=== PATIENT | female | born 1975 | race Caucasian/White ===

== ENCOUNTER 2017-09-04 02:51 | Emergency (ER) | payer OTHER ==
[2017-09-04] MEDS: DIPHENHYDRAMINE 50 MG INJ IV (03:50)
[2017-09-04] MEDS: METOCLOPRAMIDE 10 MG INJ IV (03:50)
[2017-09-04] MEDS: SOD CHLORIDE 0.9% 1,000 ML IV (03:51)
== END 2017-09-04 04:45 | disposition home or self-care (01) ==
LOC: FTE 02:51
DX: R51 Headache (principal)
CPT/HCPCS: 70450; 96374; 96375; 99285-25